=== PATIENT | female | born 1940 | race Caucasian/White ===

== ENCOUNTER 2019-02-21 08:10 | Day surgery (SDC) | payer BC ==
[2019-02-21] MEDS: CEFAZOLIN 2 GM/50 ML (PMX) 50 ML IVPB (06:00)
[~2019-02-21 08:10] MED LIST: SOD CHLORIDE 0.9% 1,000 ML IV
[2019-02-21] MEDS ORDERED: CEFAZOLIN 1 GM INJ (11:04)
[2019-02-21] MEDS ORDERED: LIDOCAINE 2% (SDV) 5 ML INJ (11:04)
[2019-02-21] MEDS ORDERED: PROPOFOL 20 ML (11:04)
[2019-02-21] MEDS ORDERED: ROCURONIUM 50 MG INJ (11:04)
[2019-02-21] MEDS ORDERED: MIDAZOLAM 1 MG/ML 2 ML INJ (12:13)
[2019-02-21] MEDS ORDERED: ONDANSETRON 4 MG INJ (12:24)
[2019-02-21] MEDS ORDERED: FAMOTIDINE 20 MG INJ (12:24)
[2019-02-21] MEDS ORDERED: METOCLOPRAMIDE 10 MG INJ (12:24)
[2019-02-21] MEDS ORDERED: DEXAMETHASONE 4 MG/ML 5 ML INJ (12:24)
[2019-02-21] MEDS: ISOSULFAN BLUE 1% 5 ML INJ SC (12:32)
[2019-02-21] MEDS ORDERED: EPHEDrine 25 MG/5 ML SYG (12:53)
[2019-02-21] MEDS ORDERED: GLYCOPYRROLATE 0.4 MG INJ (13:04)
[2019-02-21] MEDS ORDERED: NEOSTIGMINE 3 MG/3 ML SYRINGE (13:04)
[2019-02-21] MEDS ORDERED: LABETALOL HCL 20MG INJ IV (13:30)
[2019-02-21] MEDS ORDERED: morphine 2 MG INJ IV (13:30)
[2019-02-21] MEDS ORDERED: HYDROmorphONE 1 MG/5 ML IV SYRINGE IV ×3 (13:30)
[2019-02-21] MEDS ORDERED: ACETAMINOPHEN 1000MG/100ML IV 100 ML IVPB (13:30)
[2019-02-21] MEDS ORDERED: ALBUTEROL 0.083% (NEB) 2.5 MG/3 ML AMP HHN (13:30)
[2019-02-21] MEDS ORDERED: MIDAZOLAM 1 MG/ML 2 ML INJ IV (13:30)
[2019-02-21] MEDS ORDERED: OXYCODONE/ACETAMINOPHEN (5/325) TAB PO ×2 (13:30)
[2019-02-21] MEDS ORDERED: hydrALAzine 20 MG INJ IV (13:30)
[2019-02-21] MEDS ORDERED: ONDANSETRON 4 MG INJ IV ×2 (13:30)
[2019-02-21] MEDS ORDERED: MEPERIDINE 25 MG INJ IV (13:30)
[2019-02-21] MEDS: HYDROCODONE/APAP (5/325) TAB PO ×2 (13:58→19:54)
[2019-02-21] MEDS ORDERED: HYDROCODONE/APAP (5/325) TAB GTB (14:30)
[2019-02-21] MEDS: D5W-0.45 NACL + KCL 20 MEQ 1,000 ML IV ×2 (17:59→21:30)
[2019-02-21] MEDS: ATENOLOL 50 MG TAB PO (21:00)
[2019-02-22] MEDS: D5W-0.45 NACL + KCL 20 MEQ 1,000 ML IV ×3 (02:10→13:30)
[2019-02-22 06:16] LABS: ADD MAN DIFF? NO
[2019-02-22 06:20] LABS: WHITE BLOOD COUNT 7.2 10^3/ul (4.8-10.8)
[2019-02-22 06:20] LABS: HEMATOCRIT 33.9 % (37.0-47.0); HEMOGLOBIN 10.9 g/dl (12.0-16.0); LYMPHOCYTES # 0.8 10^3/ul (0.8-2.9); LYMPHOCYTES % 11.6 % (15.0-51.0); MEAN CORPUSCULAR HEMOGLOBIN 30.5 pg (29.0-33.0); MEAN CORPUSCULAR HGB CONC 32.2 g/dl (32.0-37.0); MEAN PLATELET VOLUME 11.8 fl (7.4-10.4); MONOCYTE # 0.3 10^3/ul (0.3-0.9); MONOCYTES % 3.6 % (0.0-11.0); NEUTROPHIL # 6.1 10^3/ul (1.6-7.5); NEUTROPHILS % 84.5 % (39.0-77.0); PLATELET COUNT 211 10^3/UL (140-415); RED BLOOD COUNT 3.57 10^6/ul (4.20-5.40); RED CELL DISTRIBUTION WIDTH 14.4 % (11.5-14.5)
[2019-02-22 06:43] LABS: ANION GAP 10 (5-13); BLOOD UREA NITROGEN 11 mg/dl (7-20); CALCIUM 8.5 mg/dl (8.4-10.2); CARBON DIOXIDE 22 mmol/L (21-31); CHLORIDE 110 mmol/L (97-110); CREATININE 0.55 mg/dl (0.44-1.00); GLUCOSE 152 mg/dl (70-220); POTASSIUM 4.6 mmol/L (3.5-5.1); SODIUM 142 mmol/L (135-144)
[2019-02-22] MEDS: HYDROCODONE/APAP (5/325) TAB PO (14:38)
== END 2019-02-22 15:30 | disposition home or self-care (01) ==
LOC: SDS 08:10 → REC 15:50 → SDS 08:10 → REC 13:11 → MS1 13:12 → SDS 02-22 15:30
DX: D05.11 Intraductal carcinoma in situ of right breast (principal); I10 Essential (primary) hypertension
CPT/HCPCS: 19301; 71045; 80048; 85025; 88307; 88331; 88332; 93005